=== PATIENT | male | born 1975 | race Native Hawaiian/Other Pacific Islander ===

== ENCOUNTER 2022-01-08 15:08 | Observation (INO) | payer OTHER ==
[2022-01-08] MEDS ORDERED: AMOXIC-POT CLAV 875-125MG 1 EACH TAB PO STA ×2 (17:13→17:37)
--- NOTE | 2022-01-08 17:15 | ED ---
Animal Bite HPI - General Chief Complaint: Animal Bite Stated Complaint: cat bite to arm Time Seen by Provider: 01/08/22 17:06 Source: patient, RN notes reviewed Mode of arrival: ambulatory Limitations: no limitations - History of Present Illness Initial Comments: This is a 46-year-old male who presents to the emergency department for a cat bite to the right hand. Patient states that he was at his neighbor's house yesterday, when a dog was walking by and began to bark, causing the cat to bite his right hand and arm. He is unsure if the neighbor's cat has been vaccinated. Patient also notes that he has been feeling lightheaded and has had a headache since this morning. Describes the headache as being on both sides of his head. Denies any history of migraines. Denies any visual changes or auras. States that the headache and lightheadedness were the main reasons he came to the emergency department. Denies any fevers, chills, sore throat, cough, dyspnea, chest pain, palpitations, abdominal pain, nausea, vomiting, diarrhea, or back pain. MD Complaint: animal bite Onset/Timin -: days(s) Right: Hand Animal: cat Description: household pet, immunizations unknown Mechanism: bite Associated Symptoms: erythema, rash, headache - Related Data Allergies Allergy/AdvReac Type Severity Reaction Status Date / Time No Known Allergies Allergy Verified 01/08/22 18:08 Review of Systems ROS Statement: Those systems with pertinent positive or pertinent negative responses have been documented in the HPI. ROS Other: All systems not noted in ROS Statement are negative. Past Medical History Past Medical History: No Reported History History of Any Multi-Drug Resistant Organisms: None Reported, MRSA Date of last positivie culture/infection: thigh MDRO Source:: 2009 Past Surgical History: No Surgical Hx Reported Past Psychological History: No Psychological Hx Reported Smoking Status: Never smoker Past Alcohol Use History: None Reported Past Drug Use History: None Reported General Exam Limitations: no limitations General appearance: alert, in no apparent distress Head exam: Present: atraumatic, normocephalic, normal inspection Respiratory exam: Present: normal lung sounds bilaterally. Absent: respiratory distress, wheezes, rales, rhonchi, stridor Cardiovascular Exam: Present: regular rate, normal rhythm, normal heart sounds. Absent: systolic murmur, diastolic murmur, rubs, gallop, clicks Neurological exam: Present: alert, oriented X3, CN II-XII intact Psychiatric exam: Present: normal affect, normal mood Skin exam: Present: other (Puncture wound to the medial aspect of the right thumb with surrounding swelling and erythema. The erythema extends proximally and terminates at the right axilla. The erythema is associated with increased heat.) Course Vital Signs 01/08/22 01/08/22 15:19 20:43 Temperature 98.5 F Pulse Rate 65 51 L Respiratory 16 18 Rate Blood Pressure 122/76 131/81 O2 Sat by Pulse 96 99 Oximetry Medical Decision Making - Medical Decision Making This is a 46-year-old male who presents to the emergency department for a cat bite. Lab work revealed an elevated white blood cell count, which is expected given the infection. He was given a dose of Augmentin in the emergency department and his tetanus status was updated. After I was discussing this with the patient, he inquired about medication to treat his headache. Patient states that the headache began earlier today and he reports associated lightheadedness. States that the headache and lightheadedness were the main reason he decided to come in. Patient given IM Toradol and 6 mg of Decadron. After further discussion with Dr. Patricia and the patient, it was decided that admission would be the best option, given that cat bites are prone to antibiotic failure and can become severe rather quickly. Patient started on 3 g of IV Unasyn. Will plan to admit the patient for observation. This case was discussed in detail with the attending ED physician. Presentation, findings, and treatment plan discussed in detail as well. - Lab Data Result diagrams: 01/08/22 17:01/08/22 17:09 Lab Results 01/08/22 01/08/22 01/08/22 Range/Units 17:09 17: 17:09 WBC 13.2 H (3.8-10.6) k/uL RBC 4.84 (4.30-5.90) m/uL Hgb 14.9 (13.0-17.5) gm/dL Hct 46.4 (39.0-53.0) % MCV 95.9 (80.0-100.0) fL MCH 30.8 (25.0-35.0) pg MCHC 32.1 (31.0-37.0) g/dL RDW 12.2 (11.5-15.5) % Plt Count 223 (150-450) k/uL MPV 8.0 Neutrophils % 76 % Lymphocytes % 13 % Monocytes % 7 % Eosinophils % 2 % Basophils % 1 % Neutrophils # 10.0 H (1.3-7.7) k/uL Lymphocytes # 1.7 (1.0-4.8) k/uL Monocytes # 0.9 (0-1.0) k/uL Eosinophils # 0.2 (0-0.7) k/uL Basophils # 0.1 (0-0.2) k/uL Sodium 135 L (137-145) mmol/L Potassium 4.2 (3.5-5.1) mmol/L Chloride 104 (98-107) mmol/L Carbon Dioxide 24 (22-30) mmol/L Anion Gap 7 mmol/L BUN 12 (9-20) mg/dL Creatinine 0.79 (0.66-1.25) mg/dL Est GFR (CKD-EPI)AfAm >90 (>60 ml/min/1.73 sqM) Est GFR (CKD-EPI)NonAf >90 (>60 ml/min/1.73 sqM) Glucose 94 (74-99) mg/dL Plasma Lactic Acid Alan 0.8 (0.7-2.0) mmol/L Calcium 9.1 (8.4-10.2) mg/dL Total Bilirubin 0.9 (0.2-1.3) mg/dL AST 21 (17-59) U/L ALT 17 (4-49) U/L Alkaline Phosphatase 48 (38-126) U/L Total Protein 7.6 (6.3-8.2) g/dL Albumin 4.5 (3.5-5.0) g/dL Disposition Clinical Impression: Cat bite Disposition: ADMITTED IP TO [facility]
[2022-01-08] MEDS ORDERED: DIPH,PERTUS(ACELL)TETVAC-LF 0.5 ML VIAL IM ONE (17:26)
[2022-01-08 17:34] LABS: ALT 17 U/L (4-49); AST 21 U/L (17-59); African American GFR (CKD) >90 (>60 ml/min/1.73 sqM); Albumin 4.5 g/dL (3.5-5.0); Alkaline Phosphatase 48 U/L (38-126); Anion Gap 7 mmol/L; Blood Urea Nitrogen 12 mg/dL (9-20); Calcium 9.1 mg/dL (8.4-10.2); Carbon Dioxide 24 mmol/L (22-30); Chloride 104 mmol/L (98-107); Glucose 94 mg/dL (74-99); Non-African American GFR(CKD) >90 (>60 ml/min/1.73 sqM); Potassium 4.2 mmol/L (3.5-5.1); Sodium 135 mmol/L (137-145); Total Bilirubin 0.9 mg/dL (0.2-1.3); Total Protein 7.6 g/dL (6.3-8.2)
[2022-01-08 17:37] LABS: Basophils # (A) 0.1 k/uL (0-0.2); Basophils % (A) 1 %; Eosinophils # (A) 0.2 k/uL (0-0.7); Eosinophils % (A) 2 %; HCT 46.4 % (39.0-53.0); HGB 14.9 gm/dL (13.0-17.5); Lymphocytes # (A) 1.7 k/uL (1.0-4.8); Lymphocytes % (A) 13 %; MCH 30.8 pg (25.0-35.0); MCHC 32.1 g/dL (31.0-37.0); MCV 95.9 fL (80.0-100.0); Monocytes # (A) 0.9 k/uL (0-1.0); Monocytes % (A) 7 %; Neutrophils % (A) 76 %; Platelet Count 223 k/uL (150-450); RBC 4.84 m/uL (4.30-5.90); RDW 12.2 % (11.5-15.5); WBC 13.2 k/uL (3.8-10.6)
[2022-01-08] MEDS ORDERED: dexAMETHasone 4 MG TAB PO STA (17:43)
[2022-01-08] MEDS ORDERED: KETOROLAC 15 MG/ML 1 ML VIAL IM STA (17:43)
[2022-01-08] MEDS ORDERED: SODIUM CHLORIDE 0.9% 1,000 ML IV STA (18:54)
[2022-01-08] MEDS ORDERED: NALOXONE 0.4 MG/ML 1 ML VIAL IV PRN (19:23)
[2022-01-08] MEDS ORDERED: ACETAMINOPHEN TAB 325 MG TAB PO PRN (19:23)
[2022-01-08] MEDS ORDERED: ONDANSETRON ODT 4 MG TAB PO PRN (19:24)
[2022-01-08] MEDS ORDERED: AMPICILLIN-SULBACTAM 3 GM in SODIUM CHLORIDE 0.9% 100 ML IVPB ONE (19:30)
[2022-01-08] MEDS: oxyCODONE-APAP 5-325MG 1 EACH TAB PO PRN (20:24)
--- NOTE | 2022-01-08 21:04 | P.HPIM ---
History of Present Illness H&P Date: 01/08/22 The patient is a 46-year-old male with no known PMH who presents to the emergency room for right hand pain and swelling after a cat bite. The patient reports that his pet cat of several years bit him on his right hand yesterday at around 8 PM. He initially had mild soreness in the area but didn't think much of it and washed the wound. He woke up this morning to gradually worsening right hand pain, and redness extending in a streak up to his armpit. He reports 8 out of 10 pain at the right hand. Denies fever, chest pain, shortness of breath, nausea, vomiting. Reports no history of cat bites in the past. Laboratory evaluation was remarkable for leukocytosis of 13.2. Review of systems: Pertinent positives and negatives as discussed in HPI, a complete review of systems was performed and all other systems are negative. Physical examination: General: non toxic, no distress, appears at stated age, normal weight Derm: Right hand 2 small puncture wounds at the base of the thumb with elham rounding swelling and erythema with streak-like extension up to armpit, warm Head: atraumatic, normocephalic, symmetric Eyes: EOMI, no lid lag, anicteric sclera, pupils equal round reactive to light ENT: Nose and ears atraumatic Neck: No cervical lymphadenopathy, trachea midline, supple Mouth: no lip lesion, mucus membranes moist Cardiovascular: S1S2 reg, no murmur, positive dorsalis pedis pulse bilateral, no edema Lungs: CTA bilateral, no rhonchi, no rales, no accessory muscle use Abdominal: soft, nontender to palpation, no guarding Ext: muscle strength 5 out of 5 in all 4 extremities grossly, no gross muscle atrophy, no contractures, Neuro: CN II-XI grossly intact, no gross focal neuro deficits Psych: Alert, oriented, appropriate affect Assessment/plan Right hand cat bite with subsequent cellulitis and lymphangitis -Continue with Unasyn 3 g every 6 hours -Follow up blood cultures -Pain control DVT prophylaxis -Heparin subcu The patient is admitted with an anticipated less than 2 midnight stay for evaluation of cat bite CODE STATUS: Full Code Discussed with: Patient Anticipated discharge date: in am Anticipated discharge place: Home Past Medical History Past Medical History: No Reported History History of Any Multi-Drug Resistant Organisms: None Reported, MRSA Date of last positivie culture/infection: thigh MDRO Source:: 2009 Past Surgical History: No Surgical Hx Reported Past Psychological History: No Psychological Hx Reported Smoking Status: Never smoker Past Alcohol Use History: None Reported Past Drug Use History: None Reported - Past Family History Father Family Medical History: Cancer Medications and Allergies Allergies Allergy/AdvReac Type Severity Reaction Status Date / Time No Known Allergies Allergy Verified 01/08/22 18:08 Physical Exam Vitals: Vital Signs Temp Pulse Resp BP Pulse Ox 01/08/22 20:43 51 L 18 131/81 99 01/08/22 15:19 98.5 F 65 16 122/76 96 Intake and Output 01/08/22 01/08/22 01/08/22 06:59 14:59 22:59 Other: Weight 74.843 kg Results CBC & Chem 7: 01/08/22 17:09 01/08/22 17:09 Labs: Abnormal Lab Results - Last 24 Hours (Table) 01/08/22 01/08/22 Range/Units 17:09 17:09 WBC 13.2 H (3.8-10.6) k/uL Neutrophils # 10.0 H (1.3-7.7) k/uL Sodium 135 L (137-145) mmol/L
[2022-01-09] MEDS: AMPICILLIN-SULBACTAM 3 GM in SODIUM CHLORIDE 0.9% 100 ML IVPB SCH ×5 (00:45→23:59)
[2022-01-09] MEDS: HEPARIN SODIUM,PORCINE/PF 5,000 UNIT/0.5 ML SYRINGE SQ SCH ×4 (00:48→23:59)
[2022-01-09] MEDS: oxyCODONE-APAP 5-325MG 1 EACH TAB PO PRN ×4 (00:50→19:52)
[2022-01-09 10:58] LABS: Basophils # (A) 0.1 k/uL (0-0.2); Basophils % (A) 1 %; Eosinophils % (A) 0 %; HCT 46.6 % (39.0-53.0); HGB 14.9 gm/dL (13.0-17.5); Lymphocytes # (A) 0.9 k/uL (1.0-4.8); Lymphocytes % (A) 7 %; MCH 30.9 pg (25.0-35.0); MCHC 31.9 g/dL (31.0-37.0); MCV 96.8 fL (80.0-100.0); Mean Platelet Volume 8.7; Monocytes # (A) 0.9 k/uL (0-1.0); Monocytes % (A) 7 %; Neutrophils % (A) 85 %; Platelet Count 215 k/uL (150-450); RBC 4.81 m/uL (4.30-5.90); RDW 12.1 % (11.5-15.5)
--- NOTE | 2022-01-09 13:23 | P.PN ---
Subjective Progress Note Date: 01/09/22 Hospital course: Patient is a 46-year-old male with no known past medical history. He presented to the emergency department with a chief complaint of swelling and pain to right and status post cat bite. Patient reports his cat and dog were fighting and he tried to break it up and the cat bit his hand. who presents to the emergency room for right hand pain and swelling after a cat bite. The patient reports that his pet cat of several years bit him on his right hand yesterday at around 8 PM. He initially had mild soreness in the area but didn't think much of it and washed the wound. He woke up this morning to gradually worsening right hand pain, and redness extending in a streak up to his armpit. He reports 8 out of 10 pain at the right hand. Denies fever, chest pain, shortness of breath, nausea, vomiting. Reports no history of cat bites in the past. Laboratory eval uation was remarkable for leukocytosis of 13.2. Physical exam: Patient was evaluated at bedside this morning. Patient continues to have moderate erythema and edema to right hand and thumb. Secondary to significant pain and swelling to MCP joint of R thumb, consult will be placed for Ortho hand specialist. Vital signs reviewed and stable. General: Nontoxic, no distress and appears stated age. Derm: Skin warm and dry, normal coloration for ethnicity. Patient with moderate erythema and edema to right hand and thumb significant pain and swelling to MCP joint of R thumb. patient does have full movement and able to flex and extend we'll at this time. Patient does report significant increase of pain remains able to make a fist and move per usual. Sensation is intact. Head: Atraumatic, normocephalic and symmetric. Eyes: EOMs intact, no lid lag, and anicteric sclera Mouth: no lip lesions, mucus membranes moist Cardiovascular: regular rate and rhythm with normal S1S2, no murmur, positive posterior tibial pulses bilaterally, and cap refill < 2 seconds. Lungs: Respirations even, regular, and unlabored on room air. Lungs CTA bilaterally, no rhonchi, no rales, no wheezing, and no accessory muscle usage. Abdominal: soft, nontender to palpation, no guarding, no appreciable organomegaly Ext: ROM intact. No gross muscle atrophy, no edema, no contractures Neuro: Speech clear, face symmetrical and CN II-XII grossly intact with no noted focal neuro deficits Psych: Alert and oriented to person, place, time, and situation. Appropriate and pleasant affect. Assessment and Plan of Care: Cellulitis right hand and thumb secondary to cat bite -Continue IV antibiotic Unasyn, plans to transition to oral Augmentin show some improvement -Consult Ortho-hand specialist for evaluation secondary to moderate swelling of MCP joint of R thumb -Symptomatic care and pain management -Follow up on blood cultures CODE STATUS: Full code DVT prophylaxis: Heparin Discussed with: Patient and RN Anticipated discharge date: Possibly tomorrow pending improvement Anticipated discharge place: Home A total of 36 minutes was spent on the care of this complex patient more than 50% of the time was spent in counseling and care coordination. I reviewed the documentation as provided by the WILY above, who is the original author of this note. I agree with the documented assessment and plan, with the following changes: none Objective - Vital Signs Vital signs: Vital Signs Temp 97.7 F 01/09/22 12:30 Pulse 60 01/09/22 12:30 Resp 16 01/09/22 12:30 BP 128/74 01/09/22 12:30 Pulse Ox 100 01/09/22 12:30 FiO2 Intake & Output 01/08/22 01/09/22 01/09/22 18:59 06:59 18:59 Weight 74.843 kg 74.843 kg - Labs CBC & Chem 7: 01/09/22 09:45 01/08/22 17:09 Labs: Abnormal Lab Results - Last 24 Hours (Table) 01/08/22 01/08/22 01/09/22 Range/Units 17:09 17:09 09:45 WBC 13.2 H 13.0 H (3.8-10.6) k/uL Neutrophils # 10.0 H 11.0 H (1.3-7.7) k/uL Lymphocytes # 0.9 L (1.0-4.8) k/uL Sodium 135 L (137-145) mmol/L
[2022-01-09] MEDS: HYDROcodone/APAP 5-325MG 1 EACH TAB PO PRN ×2 (17:17→23:59)
[2022-01-10 00:43] VITALS: RESP 18
[2022-01-10] MEDS: AMPICILLIN-SULBACTAM 3 GM in SODIUM CHLORIDE 0.9% 100 ML IVPB SCH (06:01)
[2022-01-10] MEDS: oxyCODONE-APAP 5-325MG 1 EACH TAB PO PRN (06:02)
[2022-01-10 07:56] VITALS: BP 161/92; PULSE 62; TEMP 97.7
[2022-01-10] MEDS: HEPARIN SODIUM,PORCINE/PF 5,000 UNIT/0.5 ML SYRINGE SQ SCH (08:28)
--- NOTE | 2022-01-10 09:32 | P.CNOR ---
History of Present Illness - [facility] Consult date: 01/10/22 Consult reason: joint pain (Right thumb, cat bite.) History of present illness: This is a 46-year-old male who presents to the emergency department for a cat bite to the right hand. Patient states that he was at his neighbor's house on 01/08/2022, when a dog was walking by and began to bark, causing the cat to bite his right hand and arm. He is unsure if the neighbor's cat has been vaccinated. He states that the thumb became swollen and red fairly quickly and presented to the emergency department. He has had IV antibiotics for at least 24 hours. He states that his pain and swelling are improved. We are consulted for orthopedic evaluation. White blood cell count is slightly elevated at 13.0 with a slight left shift. Past Medical History Past Medical History: No Reported History History of Any Multi-Drug Resistant Organisms: None Reported, MRSA Year Discovered:: thigh MDRO Source:: 2009 Past Surgical History: No Surgical Hx Reported Past Psychological History: No Psychological Hx Reported Smoking Status: Never smoker Past Alcohol Use History: None Reported Past Drug Use History: None Reported - Past Family History Father Family Medical History: Cancer Medications and Allergies Allergies Allergy/AdvReac Type Severity Reaction Status Date / Time No Known Allergies Allergy Verified 01/08/22 18:08 Physical Examination This is a 46-year-old male in no acute distress. He is alert and oriented 3. Exam of the right upper extremity reveals mild erythema and mild swelling to the right thumb. There are 2 puncture wounds about the dorsal and ulnar aspect of the thumb. He has full range of motion of the thumb with minimal difficulty or pain. There is no drainage from the puncture wounds. He can make a full fist. There is no erythematous streaking up the arm but he does have some tenderness in the inner upper arm and axilla. There is a small palpable lymph node in the axilla. Neurovascular status to the upper extremity is intact. Results - Labs Labs: Abnormal Lab Results - Last 24 Hours (Table) 01/09/22 Range/Units 09:45 WBC 13.0 H (3.8-10.6) k/uL Neutrophils # 11.0 H (1.3-7.7) k/uL Lymphocytes # 0.9 L (1.0-4.8) k/uL Microbiology - Last 24 Hours (Table) 01/08/22 19:40 Blood Culture - Preliminary Blood No Growth after 24 hours 01/08/22 17:04 Blood Culture - Preliminary Blood No Growth after 24 hours H & H 01/08/22 01/09/22 Range/Units 17:09 09:45 Hgb 14.9 14.9 (13.0-17.5) gm/dL Hct 46.4 46.6 (39.0-53.0) % Result Diagrams: 01/09/22 09:45 01/08/22 17:09 Assessment and Plan (1) Acute lymphangitis of right upper limb Current Visit: Yes Status: Acute Code(s): L03.123 - ACUTE LYMPHANGITIS OF RIGHT UPPER LIMB SNOMED Code(s): 8642671 (2) Cat bite Current Visit: Yes Status: Acute Code(s): W55.01XA - BITTEN BY CAT, INITIAL ENCOUNTER SNOMED Code(s): 771552598 Plan: The clinical and laboratory findings are discussed with the patient and with internal medicine. He has been on IV antibiotics for at least 24 hours and it has shown improvement. There is no surgical indication at this time. I will defer to internal medicine regarding discharge on oral antibiotics. I would recommend a warm compress to the thumb. He may follow up with our office as needed.
--- NOTE | 2022-01-10 10:36 | P.DS ---
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 Pt received >24 hours of IV antibiotics and has shown significant improvement. Pt also seen by posting specialist and has been recommended to apply warm compresses and follow up in their office as needed. Pt medically stable and being discharged home on Augmentin 875/125 mg tablets twice daily x 10 days. During assessment this morning, pt was educated on importance of completing entire course of antibiotics and verbalized understanding. Hospital Course: Patient is a 46-year-old male with no known past medical history. He presented to the emergency department with a chief complaint of swelling and pain to right and status post cat bite. Patient reports his cat and dog were fighting and he tried to break it up and the cat bit his hand. who presents to the emergency room for right hand pain and swelling after a cat bite. The patient reports that his pet cat of several years bit him on his right hand yesterday at around 8 PM. He initially had mild soreness in the area but didn't think much of it and washed the wound. He woke up this morning to gradually worsening right hand pain, and redness extending in a streak up to his armpit. He reports 8 out of 10 pain at the right hand. Denies fever, chest pain, shortness of breath, nausea, vomiting. Reports no history of cat bites in the past. Laboratory evaluation was remarkable for leukocytosis of 13.2. Patient was admitted under our services for Cellulitis right hand and thumb secondary to cat bite. Pt received >24 hours of IV antibiotics and has shown significant improvement. Pt also seen by posting specialist and has been recommended to apply warm co mpresses and follow up in their office as needed. Pt medically stable and being discharged home on Augmentin 875/125 mg tablets twice daily x 10 days as well as Patton for pain management. During assessment this morning, pt was educated on importance of completing entire course of antibiotics and verbalized understanding. Patient instructed on applying warm compresses and to return to the ER if he has no further improvement or worsening swelling and redness returns. Physical exam: Vital signs reviewed and stable. General: Nontoxic, no distress and appears stated age. Derm: Skin warm and dry, normal coloration for ethnicity. Patient with mild erythema and edema to right thumb and minimal swelling/erythema to right hand. He continues to have full movement and able to flex and extend thumb and make fist without difficulties. Head: Atraumatic, normocephalic and symmetric. Eyes: EOMs intact, no lid lag, and anicteric sclera Mouth: no lip lesions, mucus membranes moist Cardiovascular: regular rate and rhythm with normal S1S2, no murmur, positive posterior tibial pulses bilaterally, and cap refill < 2 seconds. Lungs: Respirations even, regular, and unlabored on room air. Lungs CTA bilaterally, no rhonchi, no rales, no wheezing, and no accessory muscle usage. Abdominal: soft, nontender to palpation, no guarding, no appreciable org anomegaly Ext: ROM intact. No gross muscle atrophy, no edema, no contractures Neuro: Speech clear, face symmetrical and CN II-XII grossly intact with no noted focal neuro deficits Psych: Alert and oriented to person, place, time, and situation. Appropriate and pleasant affect. A total of 31 minutes of time were spent preparing this complex discharge summary. Pt was discharged on 01/10/22 at 10:23 AM. I reviewed the documentation as provided by the WLIY above, who is the original author of this note. I agree with the documented assessment and plan, with the following changes: none Patient Condition at Discharge: Stable Plan - Discharge Summary New Discharge Prescriptions: New Amoxic-Pot Clav 875-125Mg [Augmentin 875-125] 1 tab PO Q12HR 10 Days #20 tab HYDROcodone/APAP 5-325MG [Patton 5-325] 1 each PO Q4HR PRN 3 Days #18 tab PRN Reason: Moderate Pain Discharge Medication List Amoxic-Pot Clav 875-125Mg [Augmentin 875-125] 1 tab PO Q12HR 10 Days #20 tab 01/10/22 [Rx] HYDROcodone/APAP 5-325MG [Patton 5-325] 1 each PO Q4HR PRN 3 Days #18 tab 01/10/22 [Rx] Follow up Appointment(s)/Referral(s): Carlyn Templeton DO [Doctor of Osteopathic Medicine] - 1 Week Activity/Diet/Wound Care/Special Instructions: Activity: As tolerated. Take breaks as needed. Diet: Heart healthy and carb consistent diet. Avoid salts, or foods with hidden salts such as canned or boxed foods and frozen dinners. Extra salt makes your heart work harder and traps the fluid in your body for longer. Special Instructions: Take all of your medications as directed and remember to keep all of your doctor's appointments and follow-up as needed. Recommend warm compresses to the thumb. You may follow up with Dr. Carlyn Templeton as needed. Call if symptoms worsen. Thank you for allowing us to participate in your care, it was truly a pleasure having you for our patient!!! Pt left without discharge instructions, called and left voicemail on his cell phone on where to last picker his prescriptions as well as instructions on care. Discharge Disposition: Left Against Medical Advice
== END 2022-01-10 10:13 | disposition left against medical advice (07) ==
LOC: EC 15:08 → 6NMEDSUR 21:37
PROVIDERS: ADMIT Internal Medicine; ATTEND Internal Medicine
DX: S61.451A Open bite of right hand, initial encounter (principal); L03.113 Cellulitis of right upper limb; L03.011 Cellulitis of right finger; Z53.29 Procedure and treatment not carried out because of patient's decision for other reasons; W55.01XA Bitten by cat, initial encounter; R42 Dizziness and giddiness; R51.9 Headache, unspecified; Z86.14 Personal history of Methicillin resistant Staphylococcus aureus infection; Z71.9 Counseling, unspecified; Z80.9 Family history of malignant neoplasm, unspecified
CPT/HCPCS: 96366 ×3; 96372 ×3; 90471; 96361; 96365; 99284; 36415; 80053; 83605; 85025 ×2; 87040; 90715; G0378 ×3; J8540; J0295 ×3; J1885; J1644

== ENCOUNTER 2022-05-15 06:31 | Emergency (ER) | payer OTHER ==
[2022-05-15 06:37] VITALS: TEMP 98
[2022-05-15] MEDS ORDERED: valACYclovir HCL 1,000 MG TABLET PO STA (07:58)
[2022-05-15] MEDS ORDERED: KETOROLAC 15 MG/ML 1 ML VIAL IM STA (07:58)
--- NOTE | 2022-05-15 08:20 | ED ---
General Adult HPI - General Chief complaint: Skin/Abscess/Foreign Body Stated complaint: Abscess Time Seen by Provider: 05/15/22 07:15 Source: patient Mode of arrival: ambulatory Limitations: no limitations - History of Present Illness Initial comments: 46-year-old male presents emergency room with rash to left side of face, headache and malaise. States that the rash has been present for the past 5 days. The rash consists of several clustered blisters. Admits to headache without visual changes. No ear pain. No sore throat. No hearing changes a dmits to nausea without vomiting. No speech deficits. No facial droop. Does have a history of chickenpox as a child. No alleviating, precipitating or modifying factors - Related Data Previous Rx's Medication Instructions Recorded Amoxic-Pot Clav 875-125Mg 1 tab PO Q12HR 10 Days #20 tab 01/10/22 [Augmentin 875-125] HYDROcodone/APAP 5-325MG [[place] 1 each PO Q4HR PRN 3 Days #18 tab 01/10/22 5-325] HYDROcodone/APAP 7.5-325MG [[place] 1 tab PO Q4HR PRN 3 Days #18 tab 05/15/22 7.5-325] Lidocaine 5% Patch [Lidoderm] 1 patch TOPICAL DAILY #24 patch 05/15/22 valACYclovir HCL [Valacyclovir] 1,000 mg PO TID #21 tab 05/15/22 Allergies Allergy/AdvReac Type Severity Reaction Status Date / Time No Known Allergies Allergy Verified 05/15/22 06:37 Review of Systems ROS Statement: Those systems with pertinent positive or pertinent negative responses have been documented in the HPI. ROS Other: All systems not noted in ROS Statement are negative. Past Medical History Past Medical History: No Reported History History of Any Multi-Drug Resistant Organisms: None Reported, MRSA Date of last positivie culture/infection: thigh MDRO Source:: 2009 Past Surgical History: No Surgical Hx Reported Past Psychological History: No Psychological Hx Reported Smoking Status: Current every day smoker Past Alcohol Use History: None Reported Past Drug Use History: Cocaine, Heroin, IV Drug Use, Marijuana, Methamphetamine, Opiates, Prescription Drug Abuse - Past Family History Father Family Medical History: Cancer General Exam Limitations: no limitations General appearance: alert, in no apparent distress Head exam: Present: atraumatic, normocephalic, other (Blistery rash left side of face in V3 distribution. No internal ear lesions. No signs of [place]) Eye exam: Present: normal appearance, PERRL, EOMI. Absent: scleral icterus, conjunctival injection, periorbital swelling ENT exam: Present: normal exam, mucous membranes moist Neck exam: Present: normal inspection. Absent: tenderness, meningismus, lymphadenopathy Respiratory exam: Present: normal lung sounds bilaterally. Absent: respiratory distress, wheezes, rales, rhonchi, stridor Cardiovascular Exam: Present: regular rate, normal rhythm, normal heart sounds. Absent: systolic murmur, diastolic murmur, rubs, gallop, clicks GI/Abdominal exam: Present: soft, normal bowel sounds. Absent: distended, tenderness, guarding, rebound, rigid Extremities exam: Present: normal inspection, full ROM, normal capillary refill. Absent: tenderness, pedal edema, joint swelling, calf tenderness Back exam: Present: normal inspection Neurological exam: Present: alert, oriented X3, CN II-XII intact Psychiatric exam: Present: normal affect, normal mood Skin exam: Present: warm, dry, intact, normal color. Absent: rash Course Vital Signs 05/15/22 05/15/22 06:34 08:38 Temperature 98 F Pulse Rate 67 79 Respiratory 18 20 Rate Blood Pressure 151/96 144/87 O2 Sat by Pulse 100 99 Oximetry Medical Decision Making - Medical Decision Making Upon arrival patient was placed into ATP. Physical exam was performed. Patient does have rash consistent with shingles to the left neck. One lesion notable to the left external ear. No lesions within the ear canal. No facial droop or signs of [place]. Patient given a dose of Toradol and valacyclovir. Patient will be discharged home on Lidoderm patches, valacyclovir [place]. Injected take the medications as directed. As he is not suffering from any facial droop patient is not initiated on steroids. Patient will be discharged home and instructed felt his primary care doctor to 4 days. Return for any new or worsening symptoms. Patient was reviewed with the plan and discharged home in stable condition Disposition Clinical Impression: Shingles (herpes zoster) polyneuropathy Disposition: HOME SELF-CARE Condition: Stable Instructions (If sedation given, give patient instructions): Shingles (ED) Additional Instructions: Please take the pain medications as directed. Follow-up with your doctor in 2-4 days and return for any new or worsening symptoms Prescriptions: Lidocaine 5% Patch [Lidoderm] 1 patch TOPICAL DAILY #24 patch HYDROcodone/APAP 7.5-325MG [[place] 7.5-325] 1 tab PO Q4HR PRN 3 Days #18 tab PRN Reason: Pain valACYclovir HCL [Valacyclovir] 1,000 mg PO TID #21 tab Is patient prescribed a controlled substance at d/c from ED?: Yes When asked, does pt state using other controlled substances?: No If prescribed controlled substance>3 days was MAPS reviewed?: Prescribed <3 Days Referrals: None,Stated [Primary Care Provider] - 1-2 days Time of Disposition: 08:20
[2022-05-15 08:39] VITALS: BP 144/87; PULSE 79; RESP 20
== END 2022-05-15 08:39 | disposition home or self-care (01) ==
LOC: EDBD 06:31 → EC 06:31
DX: B02.9 Zoster without complications (principal); G62.9 Polyneuropathy, unspecified; F17.200 Nicotine dependence, unspecified, uncomplicated
CPT/HCPCS: 99283; 96372; J1885

== ENCOUNTER 2024-05-25 13:09 | Emergency (ER) | payer OTHER ==
[2024-05-25 13:15] VITALS: RESP 18
[2024-05-25] MEDS: MORPHINE SULFATE 4 MG/ML SYRINGE IM STA (13:36)
--- NOTE | 2024-05-25 13:39 | ED ---
General Adult HPI - General Chief complaint: Extremity Injury, Upper Stated complaint: R hand pain Source: patient Mode of arrival: ambulatory Limitations: no limitations - History of Present Illness Initial comments: Dictation was produced using [employer] dictation software. please excuse any grammatical, word or spelling errors. Chief Complaint: 48-year-old male presents to the emergency department right hand pain History of Present Illness: Patient 48-year-old male who states for the last 2 days she has had right hand pain. States most of his pain is to the dorsum of his knuckles. States he was working on his camper recently. Does not recall any specific event where he hit his hand. Denies his hand being crushed. Denies any fever, chills or night sweats. Pain does not radiate to his forearm or armpit. The ROS documented in this emergency department record has been reviewed and confirmed by me. Those systems with pertinent positive or negative responses henderson ve been documented in the HPI. All other systems are other negative and/or noncontributory. - Related Data Previous Rx's Medication Instructions Recorded Amoxic-Pot Clav 875-125Mg 1 tab PO Q12HR 10 Days #20 tab 01/10/22 [Augmentin 875-125] HYDROcodone/APAP 5-325MG [[place] 1 each PO Q4HR PRN 3 Days #18 tab 01/10/22 5-325] HYDROcodone/APAP 7.5-325MG [[place] 1 tab PO Q4HR PRN 3 Days #18 tab 05/15/22 7.5-325] Lidocaine 5% Patch [Lidoderm] 1 patch TOPICAL DAILY #24 patch 05/15/22 valACYclovir HCL [Valacyclovir] 1,000 mg PO TID #21 tab 05/15/22 Cephalexin [Keflex] 500 mg PO Q6HR 5 Days #20 cap 05/25/24 oxyCODONE HCL/ACETAMINOPHEN 1 tab PO Q6HR PRN 3 Days #12 tab 05/25/24 [Percocet 5-325 mg] Allergies Allergy/AdvReac Type Severity Reaction Status Date / Time No Known Allergies Allergy Verified 05/15/22 06:37 Review of Systems ROS Statement: Those systems with pertinent positive or pertinent negative responses have been documented in the HPI. ROS Other: All systems not noted in ROS Statement are negative. Past Medical History Past Medical History: No Reported History History of Any Multi-Drug Resistant Organisms: None Reported, MRSA Date of last positivie culture/infection: thigh MDRO Source:: 2009 Past Surgical History: No Surgical Hx Reported Additional Past Surgical History / Comment(s): cyst removal from back Past Psychological History: No Psychological Hx Reported Smoking Status: Vaper Past Alcohol Use History: None Reported Past Drug Use History: Cocaine, Heroin, IV Drug Use, Marijuana, Methamphetamine, Opiates, Prescription Drug Abuse - Past Family History Father Family Medical History: Cancer General Exam - General Exam Comments Initial Comments: General: Well-appearing, nontoxic, no acute distress. Head: Normocephalic, atraumatic Eyes: PERRLA, EOMI ENT: Airway patent Chest: Nonlabored breathing Skin: No visual rash, normal skin tone Neuro: Alert and oriented 3 Musculoskeletal: No gross abnormalities Right hand: Pain over the MCP joints and DIP joints with some erythema. No skin breaks. No lymphadenopathy to the inner bicep area or armpit Limitations: no limitations Course Vital Signs 05/25/24 13:11 Temperature 97.7 F Pulse Rate 82 Respiratory 18 Rate Blood Pressure 131/83 O2 Sat by Pulse 99 Oximetry Medical Decision Making - Medical Decision Making Was pt. sent in by a medical professional or institution (, PA, SPRING ASSEMBLER, urgent care, hospital, or [facility]...) When possible be specific @ -No Did you speak to anyone other than the patient for history (EMS, parent, family, police, friend...)? What history was obtained from this source @ -No Did you review nursing and triage notes (agree or disagree)? Why? @ -I reviewed and agree with nursing and triage notes Were old charts reviewed (outside hosp., previous admission, EMS record, old EKG, old radiological studies, urgent care reports/EKG's, [facility] records)? Report findings @ -No old charts were reviewed Differential Diagnosis (chest pain, altered mental status, abdominal pain women, abdominal pain men, vaginal bleeding, musculoskeletal, weakness, fever, dyspnea, syncope, headache, dizziness, GI bleed, back pain, seizure, CVA, palpatations, mental health)? @ -Flexor tenosynovitis, cellulitis, contusion EKG interpreted by me (3pts min.). @ -None done X-rays interpreted by me (1pt min.). @ -Hand x-ray shows no acute processes CT interpreted by me (1pt min.). @ -None done U/S interpreted by me (1pt. min.). @ -None done What testing was considered but not performed or refused? (CT, X-rays, U/S, labs)? Why? @ -None What meds were considered but not given or refused? Why? @ -None Was smoking cessation discussed for >3mins.? @ -No Were there social determinants of health that impacted care today? How? (Homelessness, low income, unemployed, alcoholism, drug addiction, transportation, low edu. Level, literacy, decrease access to med. care, retirement, rehab)? @ -No Was there de-escalation of care discussed even if they declined (Discuss DNR or withdrawal of care, Hospice)? DNR status @ -No What co-morbidities impacted this encounter? (DM, HTN, Smoking, COPD, CAD, Cancer, CVA, ARF, Chemo, Hep., AIDS, mental health diagnosis, sleep apnea, morbid obesity)? @ -None Was patient admitted / discharged? Hospital course, mention meds given and route, prescriptions, significant lab abnormalities, going to OR and other pertinent info. @ -48-year-old male presents to the emergency department with atraumatic hand pain. He did however recently work on his camper. Patient complains of pain mostly in the lateral hand. No erythema. Not warm to touch. No puncture wounds. X-rays unremarkable. Patient given analgesics. Patient states that his pain is rather significant. This point there is no objective findings to suggest that there is an infection however given his pain and that he did reportedly have some splinters while he was working on his camper he was covered with antibiotics. There is concern that perhaps there is an infection. Is given strict return precautions otherwise given outpatient referral to hand surgery. Did you discuss the management of the patient with other professionals (professionals i.e. , PA, SPRING ASSEMBLER, lab, RT, psych nurse, social group worker, supervisor refining, teacher, staff air tactical officer, case management coordinator)? Give summary @ -No Was critical care preformed (if so, how long)? @ -No Undiagnosed new problem with uncertain prognosis? @ -No Drug Therapy requiring intensive monitoring for toxicity (Heparin, Nitro, Insulin, Cardizem)? @ -No Were any procedures done? @ -No Diagnosis/symptom? Acute, or Chronic, or Acute on Chronic? Uncomplicated (without systemic symptoms) or Complicated (systemic symptoms)? @ -Hand pain, no obvious source Side effects of treatment? @ -No Exacerbation, Progression, or Severe Exacerbation? @ -No Poses a threat to life or bodily function? How? (Chest pain, [place], [place], pneumonia, PE, COPD, DKA, ARF, appy, cholecystitis, CVA, Diverticulitis, Homicidal, Suicidal, threat to staff... and all critical care pts) @ -No Disposition Clinical Impression: Hand pain Disposition: HOME SELF-CARE Condition: Fair Instructions (If sedation given, give patient instructions): Arthralgia (ED) Additional Instructions: Please seek immediate medical attention especially worsening pain, erythema to the hand or fever chills night sweats. There is some concern that perhaps you are experiencing early symptoms of infection. Otherwise follow-up with hand specialist. Prescriptions: Cephalexin [Keflex] 500 mg PO Q6HR 5 Days #20 cap oxyCODONE HCL/ACETAMINOPHEN [Percocet 5-325 mg] 1 tab PO Q6HR PRN 3 Days #12 tab PRN Reason: Pain Is patient prescribed a controlled substance at d/c from ED?: Yes If prescribed controlled substance>3 days was MAPS reviewed?: Prescribed <3 Days Referrals: Carlyn Templeton DO [Doctor of Osteopathic Medicine] - 1-2 days Time of Disposition: 14:34
--- NOTE | 2024-05-25 14:19 | XR ---
EXAMINATION TYPE: XR hand complete RT DATE OF EXAM: 05/25/2024 CLINICAL HISTORY: pain TECHNIQUE: Frontal, lateral and oblique images of the right hand are obtained. COMPARISON: None. FINDINGS: There is no acute fracture/dislocation evident. The joint spaces appear within normal limi ts. The overlying soft tissue appears unremarkable. IMPRESSION: There is no acute fracture or dislocation ICD 10 NO FRACTURE, INITIAL EVALUATION [facility], , 05/25/2024 2:17 PM
[2024-05-25] MEDS: HYDROmorphone 1 MG/ML 1 ML SYRINGE IM STA (14:38)
[2024-05-25 14:47] VITALS: BP 136/76; PULSE 86; TEMP 98
== END 2024-05-25 14:47 | disposition home or self-care (01) ==
LOC: EC 13:09
CPT/HCPCS: 96372; 99283

== ENCOUNTER 2025-02-10 19:36 | Inpatient (IN) | payer OTHER, MEDICAID ==
--- NOTE | 2025-02-10 20:02 | ED ---
General Adult HPI - General Source: patient, EMS, RN notes reviewed, old records reviewed Mode of arrival: EMS Limitations: no limitations <Xu Child - Last Filed: 02/10/25 19:58> <Matthew Hedrick - Last Filed: 02/10/25 21:55> - General Chief complaint: Psychiatric Symptoms Stated complaint: Mental health spider bite Time Seen by Provider: 02/10/25 19:47 - History of Present Illness Initial comments: 49-year-old male presenting for mental health evaluation. Patient states he has felt suicidal for several months. He admits to depression. He states he is homeless. He is requesting mental health evaluation. Second complaint is a suspected bug bite to the left lateral thigh. Patient states this occurred several days ago and has been warm and painful. Minimal drainage. No fever. (Xu Child) - Related Data Previous Rx's Medication Instructions Recorded Amoxic-Pot Clav 875-125Mg 1 tab PO Q12HR 10 Days #20 tab 01/10/22 [Augmentin 875-125] HYDROcodone/APAP 5-325MG [[place] 1 each PO Q4HR PRN 3 Days #18 tab 01/10/22 5-325] HYDROcodone/APAP 7.5-325MG [[place] 1 tab PO Q4HR PRN 3 Days #18 tab 05/15/22 7.5-325] Lidocaine 5% Patch [Lidoderm] 1 patch TOPICAL DAILY #24 patch 05/15/22 valACYclovir HCL [Valacyclovir] 1,000 mg PO TID #21 tab 05/15/22 Cephalexin [Keflex] 500 mg PO Q6HR 5 Days #20 cap 05/25/24 oxyCODONE HCL/ACETAMINOPHEN 1 tab PO Q6HR PRN 3 Days #12 tab 05/25/24 [Percocet 5-325 mg] Cephalexin [Keflex] 500 mg PO Q6HR 10 Days #40 cap 02/10/25 Sulfamethox-Tmp 800-160Mg [Bactrim 1 tab PO Q12HR #20 tab 02/10/25 DS 800-160 mg] Allergies Allergy/AdvReac Type Severity Reaction Status Date / Time No Known Allergies Allergy Verified 02/10/25 19:43 Review of Systems ROS Other: All systems not noted in ROS Statement are negative. <Xu Child - Last Filed: 02/10/25 19:58> ROS Other: All systems not noted in ROS Statement are negative. <Matthew Hedrick - Last Filed: 02/10/25 21:55> ROS Statement: Those systems with pertinent positive or pertinent negative responses have been documented in the HPI. Past Medical History Past Medical History: No Reported History History of Any Multi-Drug Resistant Organisms: MRSA Date of last positivie culture/infection: thigh MDRO Source:: 2009 Past Surgical History: No Surgical Hx Reported Additional Past Surgical History / Comment(s): cyst removal from back Past Psychological History: Depression Smoking Status: Vaper Past Alcohol Use History: Occasional Past Drug Use History: Cocaine, Heroin, IV Drug Use, Marijuana, Methamphetamine, Opiates, Prescription Drug Abuse - Past Family History Father Family Medical History: Cancer <GurjitmaineXu Symone - Last Filed: 02/10/25 19:58> General Exam General appearance: alert, in no apparent distress Head exam: Present: atraumatic, normocephalic Eye exam: Present: normal appearance, PERRL ENT exam: Present: normal exam Neck exam: Present: normal inspection. Absent: tenderness, meningismus Respiratory exam: Present: normal lung sounds bilaterally. Absent: respiratory distress, wheezes Cardiovascular Exam: Present: regular rate, normal rhythm GI/Abdominal exam: Present: soft. Absent: distended, tenderness Extremities exam: Present: other (3 cm round area of erythema with central induration on the left lateral thigh. No drainable abscess.) <GurjitmaineXu Symone - Last Filed: 02/10/25 19:58> Course Vital Signs 02/10/25 19:37 Temperature 98.2 F Pulse Rate 71 Respiratory 16 Rate Blood Pressure 128/81 O2 Sat by Pulse 97 Oximetry Medical Decision Making <SangitaXu mills - Last Filed: 02/10/25 19:58> <Matthew Hedrick - Last Filed: 02/10/25 21:55> - Medical Decision Making Was pt. sent in by a medical professional or institution (, PA, CONTRACTS ADMINISTRATOR, urgent care, hospital, or fdc...) When possible be specific @ -No Did you speak to anyone other than the patient for history (EMS, parent, family, police, friend...)? What history was obtained from this source @ -No Did you review nursing and triage notes (agree or disagree)? Why? @ -I reviewed and agree with nursing and triage notes Were old charts reviewed (outside hosp., previous admission, EMS record, old EKG, old radiological studies, urgent care reports/EKG's, fdc records)? Report findings @ -No old charts were reviewed Differential Mental Health Depression, anxiety, bipolar, psychosis, schizophrenia, borderline personality, situational depression, adjustment disorder, behavioral disorder, brain tumor, malingering, substance abuse, encephalopathy, medication reaction, dementia, hypothyroidism, degenerative neurologic disorder, lupus.... This is not meant to be all-inclusive list EKG interpreted by me (3pts min.). @ -As above X-rays interpreted by me (1pt min.). @ -None done CT interpreted by me (1pt min.). @ -None done U/S interpreted by me (1pt. min.). @ -None done What testing was considered but not performed or refused? (CT, X-rays, U/S, l abs)? Why? @ -None What meds were considered but not given or refused? Why? @ -None Did you discuss the management of the patient with other professionals (professionals i.e. , PA, CONTRACTS ADMINISTRATOR, lab, RT, psych nurse, social sciences department chair, internal audit manager, teacher, staff mine warfare officer, director of casework department)? Give summary @ -No Was smoking cessation discussed for >3mins.? @ -No Was critical care preformed (if so, how long)? @ -No Were there social determinants of health that impacted care today? How? (Homelessness, low income, unemployed, alcoholism, drug addiction, transportation, low edu. Level, literacy, decrease access to med. care, long term, rehab)? @ -No Was there de-escalation of care discussed even if they declined (Discuss DNR or withdrawal of care, Hospice)? DNR status @ -No What co-morbidities impacted this encounter? (DM, HTN, Smoking, COPD, CAD, Cancer, CVA, ARF, Chemo, Hep., AIDS, mental health diagnosis, sleep apnea, morbid obesity)? @ -None Was patient admitted / discharged? Hospital course, mention meds given and route, prescriptions, significant lab abnormalities, going to OR and other pertinent info. @ -49-year-old male presenting with suspected bug bite, cellulitis to the left lateral thigh. There is some central induration, no fluctuance, or surrounding cellulitis. No drainable abscess at this time. Patient started on oral antibiotics regarding this superficial skin infection. Patient medically cleared and awaiting EPS evaluation. Patient care signed out at shift change. Undiagnosed new problem with uncertain prognosis? @ -No Drug Therapy requiring intensive monitoring for toxicity (Heparin, Nitro, Insulin, Cardizem)? @ -No Were any procedures done? @ -No Diagnosis/symptom? @ -Cellulitis Acute, or Chronic, or Acute on Chronic? @ -[Acute Uncomplicated (without systemic symptoms) or Complicated (systemic symptoms)? @ -Default Side effects of treatment? @ -No Exacerbation, Progression, or Severe Exacerbation? @ -No Poses a threat to life or bodily function? How? (Chest pain, [place], [place], pneumonia, PE, COPD, DKA, ARF, appy, cholecystitis, CVA, Diverticulitis, Homicidal, Suicidal, threat to staff... and all critical care pts) @ -No (Xu Child) Patient presents for psychiatric evaluation. Was cleared medically and by previous provider. EPS evaluated the patient and I spoke with Imani. EPS determined that patient will be admitted to inpatient psychiatric services. He signed himself in. Patient admitted in stable condition. Diagnosis/symptom? @ -Suicidal ideation Acute, or Chronic, or Acute on Chronic? @ -Acute Uncomplicated (without systemic symptoms) or Complicated (systemic symptoms)? @ -Complicated Side effects of treatment? @ -None Exacerbation, Progression, or Severe Exacerbation] @ -No Poses a threat to life or bodily function? @ -Potentially, yes (Matthew Hedrick) - Lab Data Lab Results 02/10/25 02/10/25 Range/Units 20:06 20:06 Urine Opiates Screen Not Detected (NotDetected) Ur Oxycodone Screen Not Detected (NotDetected) Urine Methadone Screen Not Detected (NotDetected) Ur Barbiturates Screen Not Detected (NotDetected) U Tricyclic Antidepress Not Detected (NotDetected) Ur Phencyclidine Scrn Not Detected (NotDetected) Ur Amphetamines Screen Detected H (NotDetected) U Methamphetamines Scrn Detected H (NotDetected) U Benzodiazepines Scrn Not Detected (NotDetected) Urine Cocaine Screen Not Detected (NotDetected) U Marijuana (THC) Screen Detected H (NotDetected) SARS-CoV-2 (PCR) Not Detected (Not Detectd) Disposition <Xu Child - Last Filed: 02/10/25 19:58> Time of Disposition: 21:55 <Matthew Hedrick - Last Filed: 02/10/25 21:55> Clinical Impression: Cellulitis, Suicidal ideation Disposition: TRANSFER TO PSYCH HOSP/UNIT Condition: Stable Prescriptions: Sulfamethox-Tmp 800-160Mg [Bactrim DS 800-160 mg] 1 tab PO Q12HR #20 tab Cephalexin [Keflex] 500 mg PO Q6HR 10 Days #40 cap Referrals: None,Stated [Primary Care Provider] - 1-2 days
[2025-02-10] MEDS: HYDROcodone/APAP 5-325MG 1 EACH TAB PO STA (20:04)
[2025-02-10] MEDS: CEPHALEXIN 500 MG CAP PO STA (20:04)
[2025-02-10] MEDS: SULFAMETHOX-TMP 800-160MG 1 EACH TAB PO STA (20:04)
[2025-02-10 20:29] LABS: Barbiturate Screen,Urine Not Detected (NotDetected); Benzodiazepines Screen,Urine Not Detected (NotDetected); Opiate Screen,Urine Not Detected (NotDetected); Oxycodone Screen, Urine Not Detected (NotDetected); Phencyclidine Screen,Urine Not Detected (NotDetected); Tricyclic Antidepressant,Urine Not Detected (NotDetected); Urn Cannabinoid Scrn Detected (NotDetected)
[2025-02-10] MEDS ORDERED: LORazepam 1 MG/0.5 ML VIAL IM PRN (22:06)
[2025-02-10] MEDS ORDERED: HALOPERIDOL LACTATE 5 MG/ML 1 ML VIAL IM PRN (22:06)
[2025-02-10] MEDS ORDERED: MAGNESIUM HYDROXIDE 2,400 MG/30 ML CUP PO PRN (22:06)
[2025-02-10] MEDS ORDERED: MAG HYDROX/AL HYDROX/SIMETH 355 ML BOTTLE PO PRN (22:06)
[2025-02-10] MEDS: LORazepam 1 MG TAB PO PRN (22:38)
[2025-02-11] MEDS: CEPHALEXIN 500 MG CAP PO SCH ×2 (07:09→12:21)
[2025-02-11] MEDS: SULFAMETHOX-TMP 800-160MG 1 EACH TAB PO SCH (08:04)
[2025-02-11] MEDS: NICOTINE 14MG/24HR PATCH TRANSDERM SCH (08:04)
[2025-02-11] MEDS: IBUPROFEN 600 MG TAB PO PRN (08:05)
[2025-02-11 08:39] LABS: Basophils # (A) 0.05 10*3/uL (0.00-0.10); Basophils % (A) 0.4 %; Eosinophils # (A) 0.24 10*3/uL (0.04-0.35); Eosinophils % (A) 2.1 %; HCT 44.2 % (39.6-50.0); HGB 14.7 g/dL (13.0-17.0); Lymphocytes # (A) 1.85 10*3/uL (0.90-5.00); Lymphocytes % (A) 16.4 %; MCH 31.3 pg (27.0-32.0); MCHC 33.3 g/dL (32.0-37.0); MCV 94.2 fL (80.0-97.0); Monocytes # (A) 1.11 10*3/uL (0.20-1.00); Monocytes % (A) 9.8 %; Neutrophils # (A) 8.01 10*3/uL (1.80-7.70); Neutrophils % (A) 71.0 %; Platelet Count 313 10*3/uL (140-440); RBC 4.69 10*6/uL (4.40-5.60); RDW 12.5 % (11.5-14.5); WBC 11.29 10*3/uL (4.50-10.00)
[2025-02-11 13:38] LABS: Cholesterol 223.00 mg/dL (0.00-200.00); HDL Cholesterol 72.60 mg/dL (40.00-60.00); LDL Cholesterol,Calculated 138.8 mg/dL (0.0-131.0); Triglycerides 57.80 mg/dL (0.00-149.00); VLDL Calculation 11.56 mg/dL (5.00-40.00)
[2025-02-11] MEDS: ACETAMINOPHEN TAB 325 MG TAB PO PRN (13:42)
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
[2025-02-11] MEDS: NYSTATIN 100,000 UNIT/GM POWD 15 GM TOPICAL SCH (22:07)
[2025-02-11] MEDS: MIRTAZAPINE 15 MG TAB PO SCH (22:07)
[2025-02-12] MEDS: VENLAFAXINE HCL ER 75 MG CAP PO SCH (08:55)
--- NOTE | 2025-02-12 18:30 | P.PN ---
Progress Note - Text Progress Note Date: 02/12/25 Interval history: Patient was seen laying down on the couch in the TV lounge where other peers w ere also congregating, however he appears to be keeping to himself and withdrawn. He is irectable and agreeable to speak with communications writer. He reports depressed mood and suicidal ideation. When asked about plan he states he would overdose on fentanyl so he could "go to sleep and not wake up". At this time patient denies homicidal ideation, intent or plan. Denies any auditory or visual hallucinations. Patient denies any side effects from the medications and has been compliant with meds. He reports he slept better last night. Mental status exam: General Appearance: Patient appears to be stated age, tall slender male with short hair Behavior: Patient is calm without any agitated behavior, but appears withdrawn. Speech: Patient's speech is soft, fluent and non-pressured. Mood/Affect: Patient reports their mood is depressed, affect is congruent and constricted. Suicidality/Homicidality: Patient denies having any homicidal ideation intent or plan. Denies reports suicidal ideation with plan to overdose on fentanyl so he could sleep and not wake up. Perceptions: Patient denies any visual hallucinations and denies any auditory hallucinations. Though content/process: There is no evidence of any delusional thought content and thought process is ruminative. Memory and concentration: AOX3, grossly intact for the purposes of this session. Judgment and insight: Poor IMPRESSIONS: Major depressive disorder, recurrent severe without psychotic features PTSD Cannabis use disorder Tobacco use disorder Unspecified personality disorder, r/o borderline personality disorder PLAN: -Patient is admitted under voluntary status to MHU for stabilization of psychiatric symptoms and safety. Patient has signed adult voluntary form and medication consent and is placed in patient's chart. -Medications: Effexor XR 75 mg daily in the morning was started this morning for depression/PTSD. Will continue to monitor at this dose with plan to increase as tolerated. Continue Remeron 15 mg QHS for depression/sleep. -Ativan and Haldol PRN for agitation/aggression -Encourage patient to participate in groups to work on coping skills.
--- NOTE | 2025-02-12 18:35 | P.MDCNMH ---
History of Present Illness H&P Date: 02/12/25 Chief Complaint: Medical evaluation 49-year-old man with no reported medical history, who is an active vapor, presenting for mental health evaluation. Patient denies any active or chronic medical complaints at this time. His review of systems is largely negative. Patient is hemodynamically stable. CBC shows mild leukocytosis with neutrophil predominance, lipid panel significant for elevated LDL to 138, cholesterol 223. Urine tox urine is positive for amphetamines, methamphetamines, marijuana. COVID is negative. No images to review. Gen: In NAD, non-toxic HEENT: normocephalic, atraumatic, hearing acuity is intant, mucous membranes moist CVS: perfusing all extremities well, no pitting edema, Respiratory: symmetric chest expansion, no accessory muscle use, GI: soft, NTTP, ND, : no suprapubic tenderness, no CVA tenderness MSK/Derm: no rashes, cyanosis Neuro: CN II-XII intact, no motor weakness, Psych: cooperative, euthymic mood, judgment and insight is intact Labs and imaging as above Assessment/plan: Hyperlipidemia - ASCVD risk calculator estimates 5.5% chance of cardiovascular event in the next 10 years warranting moderate intensity statin - Initiate atorvastatin 40 mg at bedtime Polysubstance abuse - Cessation counseling - Care per primary team Thank you for this consult, please reach out with any further questions or concerns. Past Medical History Past Medical History: No Reported History History of Any Multi-Drug Resistant Organisms: MRSA Date of last positivie culture/infection: thigh MDRO Source:: 2009 Past Surgical History: No Surgical Hx Reported Additional Past Surgical History / Comment(s): cyst removal from back Past Anesthesia/Blood Transfusion Reactions: No Reported Reaction Past Psychological History: Anxiety, Depression, PTSD Smoking Status: Vaper Past Alcohol Use History: Occasional Past Drug Use History: Cocaine, Heroin, IV Drug Use, Marijuana, Methamphetamine, Opiates, Prescription Drug Abuse - Past Family History Father Family Medical History: Cancer Medications and Allergies Home Medications Medication Instructions Recorded Confirmed Type Amoxic-Pot Clav 875-125Mg 1 tab PO Q12HR 10 Days #20 tab 01/10/22 Rx [Augmentin 875-125] HYDROcodone/APAP 5-325MG [Sutter 1 each PO Q4HR PRN 3 Days #18 tab 01/10/22 Rx 5-325] HYDROcodone/APAP 7.5-325MG [Sutter 1 tab PO Q4HR PRN 3 Days #18 tab 05/15/22 Rx 7.5-325] Lidocaine 5% Patch [Lidoderm] 1 patch TOPICAL DAILY #24 patch 05/15/22 Rx valACYclovir HCL [Valacyclovir] 1,000 mg PO TID #21 tab 05/15/22 Rx Cephalexin [Keflex] 500 mg PO Q6HR 5 Days #20 cap 05/25/24 Rx oxyCODONE HCL/ACETAMINOPHEN 1 tab PO Q6HR PRN 3 Days #12 tab 05/25/24 Rx [Percocet 5-325 mg] Cephalexin [Keflex] 500 mg PO Q6HR 10 Days #40 cap 02/10/25 Rx Sulfamethox-Tmp 800-160Mg [Bactrim 1 tab PO Q12HR #20 tab 02/10/25 Rx DS 800-160 mg] Allergies Allergy/AdvReac Type Severity Reaction Status Date / Time No Known Allergies Allergy Verified 02/10/25 19:43 Physical Exam Osteopathic Statement: *. No significant issues noted on an osteopathic structural exam other than those noted in the History and Physical/Consult. Vitals: Vital Signs Temp Pulse Resp BP Pulse Ox 02/12/25 07:51 97.4 F L 79 16 101/71 97 02/11/25 21:00 97.8 F 78 16 99/66 98 Intake and Output 02/12/25 02/12/25 02/12/25 06:59 14:59 22:59 Other: Weight 73.6 kg Cranial Nerve Examination - Cranial Nerves Cranial Nerve II- Optic: Intact Cranial Nerve III- Oculomotor: Intact Cranial Nerve IV- Trochlear: Intact Cranial Nerve V- Trigeminal: Intact Cranial Nerve - Abducens: Intact Cranial Nerve VII- Facial: Intact Cranial Nerve VIII- Auditory: Intact Cranial Nerve IX- Glossopharyngeal: Intact Cranial Nerve X- Vagus: Intact Cranial Nerve XI- Accessory: Intact Cranial Nerve XII- Hypoglossal: Intact Results CBC & Chem 7: 02/11/25 07:58
[2025-02-12] MEDS: ATORVASTATIN 40 MG TAB PO SCH (22:37)
--- NOTE | 2025-02-13 11:52 | P.PN ---
Progress Note - Text Progress Note Date: 02/13/25 Interval history: Patient was seen laying down on the couch in the TV lounge where other peers. Patient was agreeable to speak with bond underwriter today in the office. He claims that he has been homeless and struggling. Did admit to using methamphetamine recently however is fairly vague about how much he is using. He is declining rehab at this time. States that he has court that he has to go to. Claims that his mood is still depressed however improving mildly. Denies any anxiety at this time. Claims that he slept on and off last night. Once remain on the same medications at this time not reporting any side effects. Has been up for meals. At this time patient denies homicidal ideation, intent or plan. Denies any auditory or visual hallucinations. Patient denies any side effects from the medications and has been compliant with meds. Mental status exam: General Appearance: Patient appears to be stated age, tall slender male with short hair Behavior: Patient is calm without any agitated behavior, but appears withdrawn. Improving mildly Speech: Patient's speech is soft, fluent and non-pressured. Mood/Affect: Patient reports their mood is depressed, improving mildly, affect is congruent and constricted. Improving mildly Suicidality/Homicidality: Patient denies having any homicidal ideation intent or plan. Denies reports suicidal ideations intent or plan Perceptions: Patient denies any visual hallucinations and denies any auditory hallucinations. Though content/process: There is no evidence of any delusional thought content and thought process is ruminative. Memory and concentration: AOX3, grossly intact for the purposes of this session Judgment and insight: Poor, improving mildly IMPRESSIONS: Major depressive disorder, recurrent severe without psychotic features methamphetamine abuse PTSD Cannabis use disorder nicotine dependence Unspecified personality disorder, r/o borderline personality disorder PLAN: -Patient is admitted under voluntary status to MHU for stabilization of psychiatric symptoms and safety. Patient has signed adult voluntary form and medication consent and is placed in patient's chart. -Medications: Effexor XR 75 mg daily in the morning was started this morning for depression/PTSD. Will continue to monitor at this dose with plan to increase as tolerated. Remeron 15 mg QHS for depression/sleep -Ativan and Haldol PRN for agitation/aggression -Encourage patient to participate in groups to work on coping skills. declining rehab at this time. hopeful for discharge if patient is improving
[2025-02-14 09:35] LABS: Bilirubin,Urine Negative (Negative); Blood,Urine Negative (Negative); Color,Urine Light Yellow; Glucose,Urine (UA) Negative (Negative); Ketones,Urine Negative (Negative); Leukocyte Esterase,Urine Negative (Negative); Nitrite,Urine Negative (Negative); PH, Urine 5.0 (5.0-8.0); Protein,Urine Negative (Negative); Specific Gravity,Urine 1.023 (1.001-1.035); Urobilinogen,Urine <2.0 mg/dL (<2.0)
--- NOTE | 2025-02-14 12:07 | P.PN ---
Progress Note - Text Progress Note Date: 02/14/25 Interval history: Patient was seen laying down on his bed today was agreeable to speak to va underwriter in the office. Patient states that he is doing a bit better today with regards to his mood and anxiety. States that he has been trying to go to some groups, hygiene and grooming appear to be improving mildly. States that he is not able to go to rehab at this time because of ongoing court cases. Also claims that [facility] and has to wait 30 days due to leaving it. He states that he slept fairly last night has been up for meals and medications not reporting any side effects at this time. At this time patient denies homicidal ideation, intent or plan. Denies any auditory or visual hallucinations. Patient denies any side effects from the medications and has been compliant with meds. Mental status exam: General Appearance: Patient appears to be stated age, tall slender male with short hair Behavior: Patient is calm without any agitated behavior, but appears less withdrawn. Speech: Patient's speech is soft, fluent and non-pressured. Mood/Affect: Patient reports their mood is improving mildly, affect is congruent and constricted. Improving mildly Suicidality/Homicidality: Patient denies having any homicidal ideation intent or plan. Denies suicidal ideations intent or plan Perceptions: Patient denies any visual hallucinations and denies any auditory hallucinations. Though content/process: There is no evidence of any delusional thought content and thought process i improving. Fairly concrete Memory and concentration: AOX3, grossly intact for the purposes of this session Judgment and insight: Poor, improving mildly IMPRESSIONS: Major depressive disorder, recurrent severe without psychotic features methamphetamine abuse PTSD Cannabis use disorder nicotine dependence Unspecified personality disorder, r/o borderline personality disorder PLAN: -Patient is admitted under voluntary status to MHU for stabilization of psychiatric symptoms and safety. Patient has signed adult voluntary form and medication consent and is placed in patient's chart. -Medications: Effexor XR 75 mg daily in the morning was started this morning for depression/PTSD. Remeron 15 mg QHS for depression/sleep -Ativan and Haldol PRN for agitation/aggression -Encourage patient to participate in groups to work on coping skills. declining rehab at this time. hopeful for discharge if patient is improving. Patient has claiming that he is not [facility].
[2025-02-14] MEDS: LORazepam 0.5 MG TAB PO PRN (21:29)
--- NOTE | 2025-02-15 10:49 | P.PN ---
Progress Note - Text Progress Note Date: 02/15/25 Interval history: Patient was seen in his room today was agreeable to speak to entry writer in the of gordon. Patient appears to have improvement in eye contact, claims that has been showering, doing a little better on the unit. Claims that he needed to take an Ativan last night to help him with sleep. He was agreeable to try melatonin for tonight as well. States that he feels the medications have been helping him gradually. Claims that his anxiety and mood gradually improving. He states that he needs to make some phone call today and make arrangements, we will be looking into if he can return back to the senior care for tomorrow. Claims he has been eating well, going to some groups. Not reporting any side effects at this time. At this time patient denies homicidal ideation, intent or plan. Denies any auditory or visual hallucinations. Mental status exam: General Appearance: Patient appears to be stated age, tall slender male with short hair Behavior: Patient is calm without any agitated behavior, more cooperative Speech: Patient's speech is soft, fluent and non-pressured. Mood/Affect: Patient reports their mood is improving mildly, affect is congruent and Improving mildly Suicidality/Homicidality: Patient denies having any homicidal ideation intent or plan. Denies suicidal ideations intent or plan Perceptions: Patient denies any visual hallucinations and denies any auditory hallucinations. Though content/process: There is no evidence of any delusional thought content and thought process i improving. Fairly concrete, improving mildly Memory and concentration: AOX3, grossly intact for the purposes of this session Judgment and insight: improving mildly IMPRESSIONS: Major depressive disorder, recurrent severe without psychotic features methamphetamine abuse PTSD Cannabis use disorder nicotine dependence Unspecified personality disorder, r/o borderline personality disorder PLAN: -Patient is admitted under voluntary status to [facility] for stabilization of psychiatric symptoms and safety. Patient has signed adult voluntary form and medication consent and is placed in patient's chart. -Medications: Effexor XR 75 mg daily in the morning was started this morning for depression/PTSD. Remeron 15 mg QHS for depression/sleep Added melatonin 6 mg nightly for sleep -Ativan and Haldol PRN for agitation/aggression -Encourage patient to participate in groups to work on coping skills. declining rehab at this time. hopeful for discharge tomorrow.
[2025-02-15 14:49] VITALS: BMI 22.6
[2025-02-15] MEDS: MELATONIN 3 MG TABLET PO SCH (21:22)
[2025-02-15 21:42] VITALS: RESP 18
[2025-02-16 09:30] VITALS: BP 114/74; PULSE 65; TEMP 97.8
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
== END 2025-02-16 14:15 | disposition home or self-care (01) | DRG 885 ==
LOC: EC 19:36 → 3MHU 21:56
PROVIDERS: ADMIT Psychiatry & Neurology Psychiatry; ATTEND Psychiatry & Neurology Psychiatry
DX: F33.2 Major depressive disorder, recurrent severe without psychotic features (principal); L03.116 Cellulitis of left lower limb; R45.851 Suicidal ideations; Z59.00 Homelessness unspecified; F60.9 Personality disorder, unspecified; F43.10 Post-traumatic stress disorder, unspecified; E78.5 Hyperlipidemia, unspecified; F17.290 Nicotine dependence, other tobacco product, uncomplicated; F41.9 Anxiety disorder, unspecified; T63.301A Toxic effect of unspecified spider venom, accidental (unintentional), initial encounter; Z56.0 Unemployment, unspecified; Z91.148 Patient's other noncompliance with medication regimen for other reason; Z91.51 Personal history of suicidal behavior; Z81.8 Family history of other mental and behavioral disorders
CPT/HCPCS: 80053; 80061; 80306; 81003; 82075; 83036; 84443; 85025; 87635; 99285